=== PATIENT | male | born 1980 | race Caucasian/White ===

== ENCOUNTER 2021-07-22 06:34 | Observation (INO) | payer OTHER ==
[~2021-07-22] VITALS: Ht 175.3 cm; Wt 80.0 kg
[~2021-07-22 06:34] MED LIST: ATOR20TA58 PO; HYDROmorphone 2 MG/ML INJ. IVP PRN; IV RINGERS,LACTATED 1000ML 1,000 ML IV SCH; LISI20TA18 PO; MORPHINE SULFATE 2 MG/ML INJ. IVP PRN; PROCHLORPERAZINE 10 MG/2 ML VIAL. IVP PRN; fentaNYL PF VIAL 100 MCG/2 ML VIAL IVP PRN
[2021-07-22 06:54] VITALS: BP 117/85
[2021-07-22] MEDS ORDERED: LIDOCAINE 1%/EPI 1:100,000 20 ML VIAL. ONE (08:23)
[2021-07-22] MEDS ORDERED: DEXAMETHASONE SOD PHOS 20 MG/5 ML VIAL. ONE (08:34)
[2021-07-22] MEDS ORDERED: LIDOCAINE 2% PF 5 ML VIAL. ONE (08:34)
[2021-07-22] MEDS ORDERED: fentaNYL PF VIAL 100 MCG/2 ML VIAL ONE (08:34)
[2021-07-22] MEDS ORDERED: PROPOFOL 10 MG/ML (20ML) VIAL. IV ONE (08:34)
[2021-07-22] MEDS ORDERED: ONDANSETRON PF 4 MG/2 ML VIAL. ONE (08:34)
[2021-07-22] MEDS ORDERED: HYDROmorphone 2 MG/ML INJ. ONE (08:36)
[2021-07-22] MEDS ORDERED: PHENYLEPHRINE in 0.9% NACL PF 1 MG/10 ML SYRINGE. IV ONE (09:21)
[2021-07-22] MEDS ORDERED: KETOROLAC 30 MG/ML VIAL. ONE (09:33)
[2021-07-22] MEDS ORDERED: oxyCODONE/APAP 10/325 1 TAB TABLET PO PRN (10:45)
[2021-07-22] MEDS ORDERED: OXYC1TAB22 PO (11:09)
--- NOTE | 2021-07-22 12:00 | NUR ---
received from recovery. adult post tonsillectomy. denies swallowing difficulties. saline lock present. states did not lisinopril this am; slightly hypertensive. will monitor.
[2021-07-22] MEDS ORDERED: LISINOPRIL 20 MG TABLET PO SCH (13:00)
[2021-07-22 13:29] VITALS: BP 134/84
--- NOTE | 2021-07-22 14:47 | OP ---
DATE OF SURGERY: 07/22/2021 PREOPERATIVE DIAGNOSIS: Chronic tonsillitis with hypertrophy. POSTOPERATIVE DIAGNOSES: Chronic tonsillitis with hypertrophy. PROCEDURE PERFORMED: Tonsillectomy. INDICATIONS FOR PROCEDURE: Chronic infection associated with increased tonsillar size. ANESTHESIA: General anesthetic. ESTIMATED BLOOD LOSS: 25 mL. The specimen was submitted for pathological assessment. DESCRIPTION OF PROCEDURE: The patient was brought to the operating room and placed on the operating room table in supine position. He was given a general anesthetic. When his airway was secured, the table was rotated 90 degrees. His mouth was braced open with a Jerrell mouth gag and the tonsils were observed to be at least to +3-4 occupying the oropharynx with heavy cryptic debris. The oropharynx was irrigated and the left tonsil was approached. First, an Allis forceps was used to retract the tonsil medially. A shallow incision was created and dissection carried out using a So dissector; and as bleeding vessels were approached, they were cauterized using suction cautery. This progressive dissection and cauterization was taken place from the inferior pole to the superior region conserving the anterior and posterior palatine tonsil pillars. When the tonsil was removed and bleeding controlled, attention was given to the right side. The right tonsil was then grasped with an Allis, retracted medially. A shallow incision created and then with gentle dissection using a So dissector, the tonsil was dissected free from the tonsil fossa with bleeding controlled, when vessels were encountered with the suction cautery. With complete removal of the tonsil and bleeding completely controlled, the stomach was evacuated of any fluid. The oropharynx was then reexamined. No active bleeding was occurring. Then, 1% lidocaine with epinephrine had been injected for postoperative pain control and that was completed with a total of 6 mL infused. At the conclusion of the procedure, oropharynx was again irrigated and reexamined. No active bleeding was occurring and the procedure was completed. The patient was recovered from his anesthesia and taken to recovery room in stable condition. RODRÍGUEZ/PRE/VIS DR: Holger TID: [id number]
--- NOTE | 2021-07-22 17:00 | NUR ---
message left on voice mail
--- NOTE | 2021-07-22 17:30 | NUR ---
recalled Dr. cervantes. spoke to Brenton jordan; received order to go home. no further pink tinged phlegm--"thin enough to swallow" NO blood noted. ok to discharge
--- NOTE | 2021-07-22 18:00 | NUR ---
reviewed discharge instructions with patient. reviewed diet, medication and restrictions to activities of daily living. encouaged to drink fluids, ice or cold drinks. julien guzman.
--- NOTE | 2021-07-26 18:07 | PATHOLOGY ---
[facility] Accession Number: [id number] . 01 Material submitted: . tonsil - RIGHT AND LEFT TONSIL . 01 Clinical history: . CHRONIC TONSILECTOMY TONSILLITIS . 02 Diagnosis: [place] tonsils (2), bilateral tonsillectomy: - Chronic tonsillitis. (JPM/db; 07/26/2021) LBQ 07/26/2021 1725 Local . 02 Electronically signed: . Cassius Doll MD, Pathologist NPI- [id number] . 01 Gross description: . Fixative: Formalin Labeled: Right and left tonsils Specimen received: 2 palatine tonsils Dimensions: 3.3 x 2.1 x 2.1 and 3.1 x 1.7 x 1.8 cm Mucosa: Light dhaliwal-adams and cerebriform The surgical margins are inked black and green, respectively Cut surface: Light dhaliwal-yellow to light adams . Subpoena Server sections from each tonsil submitted in cassettes A1 and A2. ([facility]; 07/25/2021) [facility] 07/26/2021 1226 Local . 02 Pathologist provided ICD-10: J35.01 . 02 CPT . 814457 Specimen Comment: A courtesy copy of this report has been sent to [phone] Specimen Comment: Report sent to Performed at: 01 [facility] [address], [place] [id number] MD Lokesh Holt MD Phone: [phone] Performed at: 02 [facility] [address] [place], [place] [id number] MD Cassius Doll MD Phone: [phone]
== END 2021-07-22 19:00 | disposition home or self-care (01) ==
LOC: SURG 06:34 → 4 NORTH 10:38
PROVIDERS: ADMIT Otolaryngology; ATTEND Otolaryngology
DX: J35.01 Chronic tonsillitis (principal); Z20.822 Contact with and (suspected) exposure to COVID-19
CPT/HCPCS: 42826; 88304; A4215; A4930; G0378; G0379; J1100; J1170; J1885; J2370; J2405; J2704; J3010; J3490; A4322; A4351; A4657